=== PATIENT | female | born 2000 | race Two or more races ===

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

== ENCOUNTER 2018-09-27 19:33 | Emergency (ER) | payer MEDICARE, OTHER ==
[~2018-09-27] VITALS: Ht 154.9 cm; Wt 108.9 kg
[~2018-09-27 19:33] MED LIST: CLON1TAB12 PO; FLUO40CA8 PO; QUET300T2 PO
--- NOTE | 2018-09-27 20:26 | NUR ---
Dr. Pineda at bedside for MSE.
[2018-09-27] MEDS ORDERED: BENZONATATE 100 MG CAPSULE PO ONE (20:30)
[2018-09-27] MEDS ORDERED: ALBUTEROL SULFATE 2.5 MG/3 ML NEBU NEB ONE (20:30)
--- NOTE | 2018-09-27 20:35 | NUR ---
Respiratory at bedside.
[2018-09-27] MEDS ORDERED: BENZONATATE 100 MG CAPSULE ONE (20:36)
[2018-09-27] MEDS ORDERED: ALBUTEROL SULFATE 2.5 MG/3 ML NEBU ONE (20:40)
[2018-09-27] MEDS ORDERED: HYDROCODONE BIT/HOMATROPINE 5 ML UDC ONE (21:15)
[2018-09-27] MEDS ORDERED: ACETAMINOPHEN ES 500 MG TABLET PO ONE (21:15)
[2018-09-27] MEDS ORDERED: IBUPROFEN 800 MG TABLET ONE (21:15)
[2018-09-27] MEDS ORDERED: HYDROCODONE BIT/HOMATROPINE 5 ML UDC PO ONE (21:15)
[2018-09-27] MEDS ORDERED: ACETAMINOPHEN ES 500 MG TABLET ONE (21:15)
[2018-09-27] MEDS ORDERED: IBUPROFEN 800 MG TABLET PO ONE (21:15)
--- NOTE | 2018-09-27 21:27 | NUR ---
Patient discharged to home in stable conditon. Written and verbal after care instructions given. Patient verbalizes understanding of instructions. Pt ambulated out of ER with steady gait, no acute signs of distress, VSS, all belongings taken.
[2018-09-27 21:29] VITALS: BP 116/64
== END 2018-09-27 21:30 | disposition home or self-care (01) ==
LOC: ER 19:33
DX: J20.9 Acute bronchitis, unspecified (principal); Z90.49 Acquired absence of other specified parts of digestive tract; Z79.899 Other long term (current) drug therapy
CPT/HCPCS: 36415; 86403; 87070; A4663; A9150

== ENCOUNTER 2019-03-07 21:38 | Emergency (ER) | payer OTHER, MEDICARE ==
[~2019-03-07] VITALS: Ht 162.6 cm; Wt 110.7 kg
[2019-03-07 23:20] LABS: *URINE HCG, QUAL NEGATIVE (NEGATIVE)
--- NOTE | 2019-03-07 23:20 | NUR ---
Patient discharged to home in stable conditon. Written and verbal after care instructions given. Patient verbalizes understanding of instructions. Patient ambulated with stable gait.
[2019-03-07 23:58] VITALS: BP 121/68
== END 2019-03-07 23:20 | disposition home or self-care (01) ==
LOC: ER 21:38
DX: J06.9 Acute upper respiratory infection, unspecified (principal); F32.9 Major depressive disorder, single episode, unspecified; F41.9 Anxiety disorder, unspecified; Z90.49 Acquired absence of other specified parts of digestive tract; Z79.899 Other long term (current) drug therapy
CPT/HCPCS: 71046; 84703; A4663

== ENCOUNTER 2024-08-05 22:05 | Emergency (ER) | payer MEDICARE, OTHER ==
[~2024-08-05] VITALS: Ht 154.9 cm; Wt 108.0 kg
[2024-08-05] MEDS ORDERED: KETOROLAC TROMETHAMINE 30 MG INJ ONE (22:54)
[2024-08-05 23:16] LABS: *BILIRUBIN,URIN NEGATIVE (NEGATIVE); *BLOOD, URINE NEGATIVE (NEGATIVE); *CLARITY,URINE CLEAR (CLEAR); *COLOR,URINE YELLOW (YELLOW); *KETONES,URINE NEGATIVE (NEGATIVE); *PROTEIN,URINE NEGATIVE (NEGATIVE); LEUKOCYTE ESTERASE ,URINE NEGATIVE (NEGATIVE); NITRITE, URINE NEGATIVE (NEGATIVE); UGLUCOSE NEGATIVE (NEGATIVE)
[2024-08-05 23:18] LABS: *URINE HCG, QUAL NEGATIVE (NEGATIVE)
[2024-08-05 23:27] LABS: *AMPHETAMINE, URINE NEGATIVE (NEGATIVE); *BARBITURATE, URINE NEGATIVE (NEGATIVE); *BENZODIAZEPINE, URINE NEGATIVE (NEGATIVE); *CANNABINOID, URINE POSITIVE (NEGATIVE); *COCCAINE, URINE NEGATIVE (NEGATIVE); *OPIATE, URINE NEGATIVE (NEGATIVE); *PHENCYCLIDINE SCREEN,URINE NEGATIVE (NEGATIVE); FENTANYL, URINE NEGATIVE (NEGATIVE)
[2024-08-05 23:33] LABS: RBC,URINE NONE SEEN /HPF (0-3); SQUAMOUS EPITHELIAL CELL,UR MODERATE /HPF (NONE SEEN); WBC,URINE 0-3 /HPF (0-3)
[2024-08-05] MEDS: KETOROLAC TROMETHAMINE 30 MG INJ IM ONE (23:33)
[2024-08-05 23:34] LABS: BACTERIA,URINE FEW /HPF (NONE SEEN)
[2024-08-06] MEDS ORDERED: KETO10TA2 PO (00:07)
[2024-08-06] MEDS ORDERED: CYCL5TAB PO (00:07)
[2024-08-06 00:15] VITALS: BP 122/86; TEMP 98.2; O2SAT 99
== END 2024-08-06 00:17 | disposition home or self-care (01) ==
LOC: ER 22:05
DX: S33.5XXA Sprain of ligaments of lumbar spine, initial encounter (principal); M25.562 Pain in left knee; Z79.899 Other long term (current) drug therapy; Z88.7 Allergy status to serum and vaccine; Z90.49 Acquired absence of other specified parts of digestive tract; V49.9XXA Car occupant (driver) (passenger) injured in unspecified traffic accident, initial encounter; Y93.89 Activity, other specified; Y92.488 Other paved roadways as the place of occurrence of the external cause; Y99.8 Other external cause status
CPT/HCPCS: 99285; 72131; 84703; 73564; 96372; 80307; 81001; J1885; A4606; A4663